=== PATIENT | female | born 1990 | race Caucasian/White ===

== ENCOUNTER 2025-10-17 13:33 | Outpatient (CLI) | payer BC, SELFPAY | END 2025-10-17 13:34 | disposition home or self-care (01) | LOC: KYNREF 13:34 | PROVIDERS: PCP Nurse Practitioner Family; Visit Provider Nurse Practitioner Family | DX: E06.3 Autoimmune thyroiditis (principal) | CPT/HCPCS: 84439; 84443 ==

== ENCOUNTER 2025-10-28 11:30 | Outpatient (CLI) | payer BC, SELFPAY | END 2025-10-28 11:31 | disposition home or self-care (01) | LOC: KYNREF 11:31 | PROVIDERS: PCP Nurse Practitioner Family; Visit Provider Nurse Practitioner Family | DX: L02.91 Cutaneous abscess, unspecified (principal) | CPT/HCPCS: 87070 ==